=== PATIENT | male | born 2000 | race Caucasian/White ===

== ENCOUNTER 2019-05-25 12:50 | Emergency (ER) | payer OTHER, SELFPAY ==
[2019-05-25 12:54] VITALS: BP 148/89; PULSE 94; RESP 16; TEMP 36.7; O2SAT 100
--- NOTE | 2019-05-25 14:07 | ED.SKABFB ---
HPI - Skin/Abscess/Foreign Bdy General Chief complaint: Skin/Abscess/Foreign Body Stated complaint: ABSCESS Time Seen by Provider: 05/25/19 12:55 Source: patient Mode of arrival: ambulatory Limitations: no limitations History of Present Illness HPI narrative: This is a 19 year old male that presents to the ER for cyst to tailbone x 1 month. Pain is worse with sitting. Reports history of similar occurrence last year. Reports the area is painful and red. Denies fever or drainage. Related Data Allergies Allergy/AdvReac Type Severity Reaction Status Date / Time No Known Allergies Allergy Verified 05/25/19 12:57 Review of Systems Review of Systems: Narrative: CONSTITUTIONAL: Denies fever GASTROINTESTINAL: Denies vomiting SKIN: Reports cyst with erythema All systems reviewed & are unremarkable except as noted in HPI and below PMFSH Social History Social History (Updated 05/25/19 @ 14:12 by Ann Cary PA-C) Smoking status: Current every day smoker Substance use: never Exam Narrative: Exam Narrative: GENERAL: Well-appearing, well-nourished, and in no acute distress. HEAD: Normocephalic, atraumatic. EYES: EOMI. EXTREMITIES: Normal range of motion. No edema. SKIN: Warm, dry, no rash. 2cm area of erythema with central fluctuance noted to the right of the tailbone NEURO: No focal deficits. Alert and oriented x3. PSYCH: Normal mood and affect Course Vital Signs Vital signs: Vital Signs Temperature 98.1 F 05/25/19 12:54 Pulse Rate 94 05/25/19 12:54 Respiratory Rate 16 05/25/19 12:54 Blood Pressure 148/89 H 05/25/19 12:54 Pulse Oximetry 100 05/25/19 12:54 Temperature 98.1 F 05/25/19 12:54 Pulse Rate 94 05/25/19 12:54 Respiratory Rate 16 05/25/19 12:54 Blood Pressure 148/89 H 05/25/19 12:54 Pulse Oximetry 100 05/25/19 12:54 Procedures Abscess I/D other: Date of Incision: 05/25/19 Time of Incision: 14:13 Side (if applicable): right Local Anesthetic: lidocaine 1% and with epi Amount of anesthesia used (mL): 3 Technique: incised with #11 blade Packing used?: iodoform I&D Results: Pus and Blood Abcess I&D Additional Comments: Pilonidal abscess drained without complications. Patient tolerated procedure well MDM - Skin/Abscess/Foreign Bdy MDM Narrative Medical decision making narrative: Patient presents to the emergency department for pilonidal abscess with mild surrounding cellulitis. He is afebrile and nontoxic-appearing. Abscess successfully drained. Patient was educated on wound care. He is to follow-up with primary care doctor. He was given warnings to return to the ER Critical Care Time Critical Care Time Critical Care Time: No Discharge Plan Discharge Clinical Impression: Pilonidal abscess Patient Disposition: Home, Self-Care Condition: Stable Instructions: Antibiotic Form, Pilonidal Cyst (ED), Abscess (ED) Additional Instructions: Return if symptoms worsen or concerns; any increase in redness, swelling, pain or fever over 101 Take antibiotics as directed. Clean wound with mild soapy water. Apply antibiotic ointment and clean dressing at least three times daily. Warm compresses 3 times a day for 30 minutes each Follow up with primary care in the next 2-3 days for re-evaluation and packing removal Prescriptions: New cephalexin 500 mg capsule 500 mg PO Q8H 7 Days Qty: 21 RF: 0 metronidazole 500 mg tablet 500 mg PO Q8H 7 Days Qty: 21 RF: 0 cephalexin 500 mg capsule 500 mg PO Q8H 7 Days Qty: 21 RF: 0 metronidazole 500 mg tablet 500 mg PO Q8H 7 Days Qty: 21 RF: 0 Follow-up/Referrals: Shirley Kennedy MD [Physician] - 3 Days PHYSICIAN,[employer]ER [employer]OUND [Primary Care Provider] -
[2019-05-25 14:46] VITALS: BP 124/78; PULSE 80; RESP 20; TEMP 36.8; O2SAT 99
== END 2019-05-25 14:48 | disposition home or self-care (01) ==
PROVIDERS: Emergency Provider Emergency Medicine
DX: L05.01 Pilonidal cyst with abscess (principal); F17.200 Nicotine dependence, unspecified, uncomplicated
CPT/HCPCS: 10061; 10080; 99283